=== PATIENT | female | born 1975 | race Caucasian/White ===

== ENCOUNTER 2019-05-05 06:00 | Outpatient (CLI) | payer OTHER ==
[2019-05-05 16:09] LABS: Hemoglobin 13.5 g/dL (12.0-16.0); Mean Corpuscular Hemoglobin 33.1 pg (27.0-31.0); Mean Platelet Volume 6.4 fL (7.4-10.4); Platelet Count 297 thou/uL (130-400); RBC Distribution Width 11.5 % (11.5-14.5); Red Blood Cell (RBC) Count 4.09 mill/uL (4.20-5.40); White Blood Cell (WBC) Count 9.7 thou/uL (4.8-10.8)
[2019-05-05 16:18] LABS: BHCG - Serum Negative (NEGATIVE); Pregs Control Background? CLEAR/WHITE (CLR/WHITE); Pregs Control Bar Appear? YES (CONTROL BAR)
--- NOTE | 2019-05-05 20:27 | HP ---
HISTORY OF PRESENT ILLNESS: Ms. Simon is a 43-year-old white female, G3, P2, A1 with one prior section for twins with tubal ligation, who has had a long history of increasing menorrhagia with dysmenorrhea. She is using nonsteroidal pain medication with minimal response. Her flow, she saturates a maxi pad 1 to 2 hours on her heavy days. She is desiring definitive surgical therapy and had been offered an endometrial ablation in the past, but declines. She also reports aggravation of right labial minora hyperplasia which continues to become irritated and desires excision of this at this operative setting. PAST MEDICAL HISTORY: Previous renal calculi. PAST SURGICAL HISTORY: As noted, with tubal ligation and also a partial SBO requiring excision of approximately, she reports, 9 [address] of small intestine approximately [address] Mcdonald of General Surgery. Breast augmentation. ALLERGIES: SHE HAS NO KNOWN DRUG ALLERGIES. SOCIAL HISTORY: She is a nonsmoker. No excessive alcohol use. FAMILY HISTORY: Noncontributory. 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 PHYSICAL EXAMINATION: GENERAL: Well-developed, well-nourished white female, in no acute distress. VITAL SIGNS: Height 5 feet 5 inches, weight 139, and BMI 23.1. Blood pressure 114/68, pulse 63 and regular, respiratory rate 18, and O2 saturation on room air 99%. HEENT: Within normal limits. CHEST: Clear to auscultation. HEART: Regular rate and rhythm. S1, S2 heart sounds. No murmurs, rubs, or gallops. ABDOMEN: Soft and nontender. Well-healed vertical midline incision just below the umbilicus and well-healed Pfannenstiel incision from prior section. PELVIS: Normal external female genitalia. Right labia hypertrophy noted of the labia minora. Cervix had no lesions. Uterus small and nontender. Adnexa were nontender with no masses. ASSESSMENT: A 43-year-old white female G3, P2, A1, prior section with tubal ligation with persistent menorrhagia and severe dysmenorrhea, unresponsive to nonsteroidal therapy. Suspect adenomyosis. Also, complaining of some right labial minora hypertrophy, desiring excision of the excess length in fold. PLAN: Plan is to proceed with robotic total laparoscopic hysterectomy with bilateral salpingectomy. Plan for ovarian preservation. Also, excise the excessive length in the right labia minora. Risks and benefits of the procedure discussed in detail. She is set for surgery on 05/06/2019. Job ID: [id number]
== END 2019-05-05 06:01 | disposition home or self-care (01) ==
LOC: LABBT 06:00
PROVIDERS: ATTEND Obstetrics & Gynecology
DX: Z01.812 Encounter for preprocedural laboratory examination (principal); N92.0 Excessive and frequent menstruation with regular cycle; N94.6 Dysmenorrhea, unspecified
CPT/HCPCS: 84703; 85027; 86850; 86900; 86901

== ENCOUNTER 2019-05-06 08:55 | Day surgery (SDC) | payer OTHER ==
[2019-05-05 15:00] VITALS: BMI 22.9
[2019-05-06] MEDS ORDERED: Gabapentin 300 MG CAP ONE (09:31)
[2019-05-06] MEDS ORDERED: Famotidine/PF 20 mg/2ml Vial ONE (09:31)
[2019-05-06] MEDS ORDERED: CeleCOXIB 100 MG CAP ONE (09:52)
[2019-05-06] MEDS ORDERED: Scopolamine 1.5 mg/72 hour Patch ONE (09:57)
[2019-05-06] MEDS ORDERED: Midazolam HCl 2 mg/2 ml Vial ONE (10:07)
[2019-05-06] MEDS ORDERED: Fentanyl 100 MCG/2 ML VIAL ONE ×3 (10:24→14:24)
[2019-05-06] MEDS ORDERED: Bupivacaine PF 0.5% 30 ML VIAL ONE (10:27)
[2019-05-06] MEDS ORDERED: Lidocaine 1% w/Epinephrine 1:100K 20 ML VIAL ONE (10:27)
[2019-05-06] MEDS ORDERED: Lidocaine 1% PF 5 ML VIAL ONE (10:49)
[2019-05-06] MEDS ORDERED: PROPOFOL 200 MG/20 ML VIAL ONE (10:49)
[2019-05-06] MEDS ORDERED: Ondansetron PF 4 MG/2 ML Vial ONE (10:49)
[2019-05-06] MEDS ORDERED: Dexamethasone 20 MG/5 ML VIAL ONE (10:49)
[2019-05-06] MEDS ORDERED: PHENYLEPHRINE-NS 100 MCG/ML 10 ML SYRINGE ONE (10:49)
[2019-05-06] MEDS ORDERED: Ketorolac Tromethamine 30 MG/ML VIAL ONE (10:49)
[2019-05-06] MEDS ORDERED: Rocuronium Bromide 10 MG/ML (10ML VIAL) ONE (10:49)
[2019-05-06] MEDS ORDERED: Glycopyrrolate 0.2 MG/ML 5 ML SYRINGE ONE (10:49)
[2019-05-06] MEDS ORDERED: Promethazine HCl 25 MG/ML VIAL SLOW IVP PRN (11:53)
[2019-05-06] MEDS ORDERED: Ondansetron HCl/PF 4 MG/2 ML Vial IVP PRN (11:53)
[2019-05-06] MEDS ORDERED: Promethazine HCl 25 MG/ML VIAL IM PRN ×2 (11:53→13:01)
[2019-05-06] MEDS ORDERED: Meperidine HCl/PF 25 MG/ML VIAL SLOW IVP PRN (11:53)
[2019-05-06] MEDS ORDERED: Sodium Chloride 0.9% 1,000 ML IV SCH (13:00)
[2019-05-06] MEDS ORDERED: Ondansetron PF 4 MG/2 ML Vial IVP PRN (13:01)
[2019-05-06] MEDS ORDERED: diphenhydrAMINE 25 MG CAP PO PRN (13:01)
[2019-05-06] MEDS ORDERED: Simethicone Chewable 80 MG TAB PO PRN (13:01)
[2019-05-06] MEDS ORDERED: Morphine 4 MG/ML VIAL SLOW IVP PRN (13:01)
[2019-05-06] MEDS ORDERED: Bisacodyl 10 MG SUPP PR PRN (13:01)
[2019-05-06] MEDS ORDERED: Zolpidem Tartrate 5 MG TAB PO PRN (13:01)
[2019-05-06] MEDS ORDERED: traMADol HCl 50 MG TAB PO PRN (13:01)
[2019-05-06] MEDS ORDERED: Promethazine HCl 25 MG/ML VIAL ONE (13:29)
--- NOTE | 2019-05-06 17:02 | OP ---
DATE OF PROCEDURE: 05/06/2019 PREOPERATIVE DIAGNOSES: 1. A 43-year-old white female, prior section with menorrhagia and dysmenorrhea, unresponsive to medical management. 2. Desires definitive surgical therapy. 3. Symptomatic right labia minora hypertrophy. POSTOPERATIVE DIAGNOSES: 1. A 43-year-old white female, prior section with menorrhagia and dysmenorrhea, unresponsive to medical management. 2. Desires definitive surgical therapy. 3. Symptomatic right labia minora hypertrophy. PROCEDURES PERFORMED: 1. Robotic total laparoscopic hysterectomy with bilateral salpingectomy. 2. Excision of excess right labial minora tissue. SENIOR COST ANALYST SURGEON: Maria L Hutson PA-C ANESTHESIA: General endotracheal. ESTIMATED BLOOD LOSS: 25 mL. COMPLICATIONS: None. COUNTS: Correct x2. ANTIBIOTICS: A 2 g Ancef on-call to OR. PATHOLOGY: Uterus, cervix, and bilateral fallopian tubes. FINDINGS: 1. Normal-appearing right ovary and tubes were status post tubal ligation. 2. Boggy mildly enlarged uterus, consistent with possible adenomyosis. 3. Clear urine present in Almonte catheter postprocedure and also bladder was watertight to greater than 300 mL distention. 4. Bilateral ureteral peristalsis visualized postprocedure. DISPOSITION: Recovery room, stable. DESCRIPTION OF PROCEDURE: The patient previously received informed consent in regard to surgery. She was taken back to the operating room, where she received a general endotracheal anesthetic agent without complications. She was placed in dorsal lithotomy position with Crow stirrups and prepped and draped in usual sterile fashion. A side-arm speculum was placed in vagina and Almonte catheter had been placed. Prior to this, the right labia minora area was inspected and approximately 3 to 4 cm of excess tissue was then clamped with a hemostatic clamp. The excess tissue was sewn distal to this and an interrupted mattress sutures were placed into the clamp securing hemostasis. Then, a side-arm speculum was placed. Anterior lip of cervix was grasped with single-tooth tenaculum and the uterus sounded 9 cm. A size 8 cm MARCIA uterine manipulator with a 4.0 cm cup was placed. Tenaculum and speculum were removed. Attention was then turned to the abdomen, where perspective trocar sites were infiltrated with 0.5% Marcaine with epinephrine. A 12 cm supraumbilical incision was made above the previous midline scar. A Veress needle into the peritoneal cavity and the patient's pressure was less than 5 mm. Abdomen was insufflated with the patient pressure of 15 with approximately 4 L of carbon dioxide gas. Veress needle was removed. A 12-mm trocar was placed. Laparoscope was introduced through the trocar sleeve and there was some omental adhesions inferior to this by the previous midline incision from the small bowel surgery. These had been avoided on entry. The left and right 8 mm robotic trocars were then placed under laparoscopic guidance along the right upper quadrant 11 mm cardiology physician assistant port. Robot was docked in usual fashion. I broke scrub and then proceeded to carry out the surgery from the operative console while my assistants remained at the bedside. The omental adhesions were taken down via direct visualization with monopolar scissors robotically. Then, we proceeded to carry out the hysterectomy. The uterus was elevated from the pelvis. My cardiology physician assistant grasped the end of the left fallopian fimbria and I removed the distal remnant of the fallopian tube with bipolar fenestrated cautery and monopolar scissors. Then, tissue was removed through the right upper quadrant cardiology physician assistant port. Then, the left utero-ovarian ligament was coagulated and transected. Serial coagulation of the broad ligament hugging close to uterus was carried out to the left round ligament was reached, coagulated, and transected. The anterior leaf of the broad ligament was entered and the vesicouterine peritoneum was taken down in layering technique dissecting the bladder atraumatically past the cervical vaginal margin. The bladder had been distended intermittently via my cardiology physician assistant via the Almonte dealing its positioning due to the prior section. The uterine vessels were skeletonized on the left side and coagulated in the internal cervical os region. This was then carried out in likewise fashion. Again, the right fallopian tube removal was coagulated in the mesosalpinx and removed in the right upper quadrant port. The uterine ovarian ligament was coagulated and transected. Serial coagulation of the broad ligament hugging close to uterus was carried out to the right round ligament was reached. It was coagulated and transected. The anterior lip of the vesicouterine peritoneum again was then entered dissecting this continued in the layering technique dropping the bladder safely past cervical vaginal margin. Further dissection of peritoneum on the right side was carried out from the previous scarring from the section and it was isolated for skeletonization of the right uterine vessels. They were coagulated in the internal cervical os region. We again distended the bladder to ascertain confirming that it had been cleared safely from the proposed colpotomy site. This was confirmed. Then, the colpotomy was began from 12 to 3 and 12 to 9 o'clock fashion, completing the posterior from 6 to 9 and 6 to 3 o'clock. The specimen was removed and placed in the vaginal vault. Monopolar scissors were replaced with a kim needle electric mule driver. I then coagulated the vaginal cuff using with a bipolar fenestrated cautery. Then, my cardiology physician assistant brought in a Stratafix suture and I closed the vaginal cuff starting from the right angle to the left angle back towards the midline securing hemostasis of the vaginal cuff. The excess during suture were then removed through the right upper quadrant cardiology physician assistant port. The pelvis was irrigated and suctioned. The bladder had been reduced and it was noted to be watertight. Bilateral ureteral peristalsis with the pathway of the ureters was seen to be inferior to the operative sites was confirmed. All pedicle sites were confirmed to be hemostatic. The robot was then undocked. Trocar sleeves were removed. I then proceeded to close the midline supraumbilical incision fascial defect with a [id number] suture of 0 Vicryl. The remainder of the trocar sites were closed with 4-0 Monocryl and Dermabond. A sponge stick checked the vaginal vault to confirm hemostasis and this was confirmed. Almonte was draining clear urine. The patient was awakened from anesthesia, transferred to recovery room in stable condition. Job ID: [id number]
[2019-05-06] MEDS: Sodium Chloride 0.9% 1,000 ML IV SCH (18:07)
[2019-05-06] MEDS: Ketorolac Tromethamine 30 MG/ML VIAL IVP SCH ×2 (18:08→23:30)
[2019-05-06] MEDS: Acetaminophen 1,000 MG in Premix Bag 1 BAG IVPB SCH ×2 (18:09→23:30)
[2019-05-06] MEDS: traMADol HCl 50 MG TAB PO PRN (21:45)
[2019-05-07] MEDS: Sodium Chloride 0.9% 1,000 ML IV SCH (02:08)
[2019-05-07] MEDS: Acetaminophen 1,000 MG in Premix Bag 1 BAG IVPB SCH (05:20)
[2019-05-07 05:38] LABS: Hemoglobin 10.2 g/dL (12.0-16.0); Mean Corpuscular Hemoglobin 33.6 pg (27.0-31.0); Mean Platelet Volume 6.7 fL (7.4-10.4); Platelet Count 207 thou/uL (130-400); RBC Distribution Width 11.6 % (11.5-14.5); Red Blood Cell (RBC) Count 3.03 mill/uL (4.20-5.40); White Blood Cell (WBC) Count 11.7 thou/uL (4.8-10.8)
[2019-05-07] MEDS ORDERED: Ibuprofen 800 MG TAB PO SCH (06:00)
--- NOTE | 2019-05-07 06:44 | PDOC.EVN ---
Event Note - Event Note Event Note: Tolerating diet. Ambulating and voiding. Has some shoulder referred pain. Discussed. O:AFVSS. HCT 30.. U/O >1000 ml ABD: soft/non distended. trochar sites clean/dry/intact A/P: Post op day 1 from robotic tlh... Doing well. D/C home. F/u 2 and 6 weeks.
--- NOTE | 2019-05-07 08:39 | DIS ---
DATE OF ADMISSION: 05/06/2019 DATE OF DISCHARGE: 05/07/2019 DIAGNOSES: 1. Menorrhagia. 2. Dysmenorrhea, unresponsive to medical management. 3. Right labia minora hypertrophy. PROCEDURES PERFORMED: 1. Robotic total laparoscopic hysterectomy with bilateral salpingectomy. 2. Excision of excessive right labial tissue. SUMMARY OF HOSPITAL COURSE: Ms. Simon is a 43-year-old white female, who has had continued menorrhagia and dysmenorrhea despite medical trials of nonsteroidals. She desired definitive surgical therapy. She also had irritation of lengthened right labia minora hypertrophy. She underwent a robotic total laparoscopic hysterectomy with bilateral salpingectomy along with a right labial excision of excess tissue on 05/06. Postoperatively, the patient has done well. Vital signs remained stable. Ambulating, voiding, tolerating diet without difficulty on postop day 0 to 1. Hematocrit was 30.9%. She was discharged the morning of postop day 1. Discharge medications will be tramadol 50 q.6 hours p.r.n. pain and ibuprofen [id number] as directed. She has a scheduled followup in 2 and 6 weeks. Pathology is pending at time of dictation. Job ID: [id number]
[2019-05-07] MEDS ORDERED: FLU VACC QS2019-20(6MOS UP)/PF 60 MCG/0.5 ML SYRINGE IM ONE (09:00)
[2019-05-07 10:11] VITALS: BP 96/59; TEMP 97.7
[2019-05-07] MEDS: traMADol HCl 50 MG TAB PO PRN (10:31)
== END 2019-05-07 10:59 | disposition home or self-care (01) ==
LOC: SDC 08:55 → SURG A 13:00 → SDC 05-07 10:59
PROVIDERS: ATTEND Obstetrics & Gynecology
PROC: 0UT94ZZ Resection of Uterus, Percutaneous Endoscopic Approach (ICD-10-PCS; principal; 2019-05-07)
PROC: 0UT74ZZ Resection of Bilateral Fallopian Tubes, Percutaneous Endoscopic Approach (ICD-10-PCS; principal; 2019-05-07)
PROC: 0UBMXZZ Excision of Vulva, External Approach (ICD-10-PCS; principal; 2019-05-07)
DX: N80.0 Endometriosis of uterus (principal); N72 Inflammatory disease of cervix uteri; N90.60 Unspecified hypertrophy of vulva; N94.6 Dysmenorrhea, unspecified
CPT/HCPCS: 36415; 85027; 88307; 90471; 90686; 90732; G0008; G0009; J0131; J0690; J1100; J1885; J2001; J2250; J2270; J2405; J2550; J2704; J3010; S0020; S0028

== ENCOUNTER → 2021-08-25 | Outpatient (CLI) | payer OTHER, SELFPAY | LOC: EDSTATUS 09:29 → RAD 15:49 → ER/OP 15:49 | PROVIDERS: ATTEND Family Medicine | DX: R05.9 Cough, unspecified (principal) | CPT/HCPCS: 71046 ==

== ENCOUNTER 2023-11-13 14:16 | Emergency (ER) | payer OTHER ==
[2023-11-13] MEDS ORDERED: Ondansetron ODT 4 MG TAB ONE (15:15)
[2023-11-13 15:30] LABS: #Basophils 0.03 10x3/uL (0.0-0.2); %Basophils 0.4 % (0.0-1.0); %Eosinophils 1.8 % (0.0-10.0); %Lymphocytes 26.4 % (21.0-51.0); %Monocytes 4.1 % (0.0-10.0); Hematocrit 40.3 % (36.0-47.0); Hemoglobin 13.7 g/dL (12.0-16.0); Mean Corpuscular Hemoglobin 32.9 pg (27.0-31.0); Mean Corpuscular Volume 96.6 fL (78.0-98.0); Mean Platelet Volume 8.7 fL (7.4-10.4); Platelet Count 298 10x3/uL (130-400); RBC Distribution Width 12.3 % (11.5-14.5); Red Blood Cell (RBC) Count 4.17 mill/uL (4.20-5.40)
[2023-11-13 15:50] LABS: ALT (SGPT) 25 U/L (8-55); AST (SGOT) 17 U/L (5-34); Alkaline Phosphatase 42 U/L (40-110); Anion Gap 12 mmol/L (10-20); BUN (Urea Nitrogen) 13 mg/dL (7.0-18.7); Bilirubin, Total 0.6 mg/dL (0.2-1.2); Calc. Creatinine Clearance 0 mL/min (70-130); Calcium 9.5 mg/dL (7.8-10.44); Carbon Dioxide 25 mmol/L (22-29); Chloride 105 mmol/L (98-107); Estimated GFR 82; Glucose 90 mg/dL (70-105); Lipase 36 U/L (8-78); Potassium 3.7 mmol/L (3.5-5.1); Protein, Total 7.2 g/dL (6.0-8.3); Sodium 138 mmol/L (136-145)
[2023-11-13 15:56] LABS: BHCG - Serum Negative (NEGATIVE); Pregs Control Background? CLEAR/WHITE (CLR/WHITE); Pregs Control Bar Appear? YES (CONTROL BAR)
[2023-11-13 16:16] LABS: Albumin 4.4 g/dL (3.5-5.0); Globulin 2.8 g/dL (2.4-3.5)
== END 2023-11-13 17:46 | disposition left against medical advice (07) ==
LOC: ERS 14:16
DX: Z53.21 Procedure and treatment not carried out due to patient leaving prior to being seen by health care provider (principal)
CPT/HCPCS: 36415; 80053; 83690; 84703; 85025; Q0162